=== PATIENT | male | born 1970 | race American Indian/Alaskan Native ===

== ENCOUNTER 2018-06-23 13:30 | Emergency (ER) | payer SELFPAY ==
[2018-06-23] MEDS ORDERED: TORADOL IM ONE (18:16)
--- NOTE | 2018-06-23 18:16 | Emergency Department Report ---
ED ENT HPI - General Chief complaint: Dental/Oral Stated complaint: ABSCESS Source: patient Mode of arrival: Ambulatory Limitations: No Limitations - History of Present Illness Initial comments: This is a 48-year-old -[place] male who presents with complaint of left swelling from toothache for 2 days. Patient states he had some swelling and discomfort 6 months ago with the same tooth which improved so he did not follow- up with the dentist for further evaluation. Patient states tooth started out sensitive on the top and now there is some swelling around which he believe is potentially an abscess. Patient states he has been taken ibuprofen with no improvement of symptoms. MD complaint: tooth pain Onset/Timin -: days(s) Location: tooth # (#18) 1 - dental caries Severity: moderate Severity scale (0 -10): 7 Quality: other (throbbing) Consistency: constant Improves with: none Worsens with: eating Context- Dental: history of dental caries, poor dental care Associated Symptoms: gum swelling, toothache - Related Data Previous Rx's Medication Instructions Recorded Last Taken Type Clindamycin [Clindamycin CAP] 300 mg PO Q8H #21 cap 06/23/18 Unknown Rx Naproxen [Naprosyn] 500 mg PO TID #21 tablet 06/23/18 Unknown Rx traMADol [Ultram 50 MG tab] 50 mg PO Q6HR PRN #8 tablet 06/23/18 Unknown Rx Allergies Allergy/AdvReac Type Severity Reaction Status Date / Time No Known Allergies Allergy Unverified 06/23/18 13:59 ED Dental HPI - General Chief complaint: Dental/Oral Stated complaint: ABSCESS Source: patient Mode of arrival: Ambulatory Limitations: No Limitations - Related Data Previous Rx's Medication Instructions Recorded Last Taken Type Clindamycin [Clindamycin CAP] 300 mg PO Q8H #21 cap 06/23/18 Unknown Rx Naproxen [Naprosyn] 500 mg PO TID #21 tablet 06/23/18 Unknown Rx traMADol [Ultram 50 MG tab] 50 mg PO Q6HR PRN #8 tablet 06/23/18 Unknown Rx Allergies Allergy/AdvReac Type Severity Reaction Status Date / Time No Known Allergies Allergy Unverified 06/23/18 13:59 ED Review of Systems ROS: Stated complaint: ABSCESS Other details as noted in HPI Constitutional: denies: chills, fever ENT: dental pain. denies: ear pain, throat pain, hearing loss, epistaxis, congestion Respiratory: denies: cough, shortness of breath, wheezing Cardiovascular: denies: chest pain, palpitations Gastrointestinal: denies: abdominal pain, nausea, diarrhea Neurological: headache. denies: weakness, paresthesias Psychiatric: denies: anxiety, depression ED Past Medical Hx - Past Medical History Previous Medical History?: No - Surgical History Past Surgical History?: No - Social History Smoking Status: Current Every Day Smoker Substance Use Type: None - Medications Home Medications: Home Medications Medication Instructions Recorded Confirmed Last Taken Type Clindamycin [Clindamycin CAP] 300 mg PO Q8H #21 cap 06/23/18 Unknown Rx Naproxen [Naprosyn] 500 mg PO TID #21 tablet 06/23/18 Unknown Rx traMADol [Ultram 50 MG tab] 50 mg PO Q6HR PRN #8 tablet 06/23/18 Unknown Rx ED Physical Exam - General Limitations: No Limitations General appearance: alert, in no apparent distress - ENT ENT exam: Present: mucous membranes moist, other (#18 dental caries, mucosal swelling, tenderness) - Neck Neck exam: Present: normal inspection - Respiratory Respiratory exam: Present: normal lung sounds bilaterally. Absent: respiratory distress - Cardiovascular Cardiovascular Exam: Present: regular rate, normal rhythm. Absent: systolic murmur, diastolic murmur, rubs, gallop - GI/Abdominal GI/Abdominal exam: Present: soft, normal bowel sounds - Neurological Exam Neurological exam: Present: alert, oriented X3 - Psychiatric Psychiatric exam: Present: normal affect, normal mood - Skin Skin exam: Present: warm, dry, intact, normal color. Absent: rash ED Course Vital Signs 06/23/18 13:55 Temperature 99.8 F H Pulse Rate 88 Respiratory 18 Rate Blood Pressure 156/103 O2 Sat by Pulse 99 Oximetry ED Medical Decision Making - Medical Decision Making Patient is stable and was examined by me in fast track ER. Given Toradol once in ER. Susceptible of dental caries with left side facial swelling. Start clindamycin, naproxen, and tramadol for dental caries. Referral to an emergency dental clinics. Discussed plan with patient. He agreed with ER plan. Discharged home stable. Follow up with dentist in 24-48 hours. Critical care attestation.: If time is entered above; I have spent that time in minutes in the direct care of this critically ill patient, excluding procedure time. ED Disposition Clinical Impression: Dental caries, Toothache, Swelling of left side of face Disposition: - TO HOME OR SELFCARE Is pt being admited?: No Does the pt Need Aspirin: No Condition: Stable Instructions: Dental Caries (ED), Toothache (ED) Additional Instructions: Complete all days of clindamycin as prescribed for 7 days. Avoid drinking alcohol while taking antibiotics and for up to 24 hours of completion. Follow up with Dentist in 24-72 hours. Prescriptions: Clindamycin [Clindamycin CAP] 300 mg PO Q8H #21 cap Naproxen [Naprosyn] 500 mg PO TID #21 tablet traMADol [Ultram 50 MG tab] 50 mg PO Q6HR PRN #8 tablet PRN Reason: Pain Referrals: [facility] [Outside] - 3-5 Days [facility] [Outside] - 3-5 Days [facility] [Outside] - 3-5 Days [facility] [Outside] - 3-5 Days Forms: Work/School Release Form(ED) Time of Disposition: 18:25 Print Language: [id number]
[2018-06-23 19:12] VITALS: BP 150/94
== END 2018-06-23 19:12 | disposition home or self-care (01) ==
LOC: ED 13:30
DX: K02.9 Dental caries, unspecified (principal); F17.200 Nicotine dependence, unspecified, uncomplicated
CPT/HCPCS: 96372; 99282; J1885